=== PATIENT | male | born 1930 | race Caucasian/White ===

== ENCOUNTER 2017-09-22 21:46 | Inpatient (IN) | payer MEDICARE, OTHER ==
[~2017-09-22] VITALS: Ht 177.8 cm; Wt 71.0 kg
[~2017-09-22 21:46] MED LIST: ASPIRIN 32325 MG/TAB PO
[2017-09-22 22:38] LABS: BASO # 0.1 (0.0-0.2); BASO % 0.9 % (0.0-2.0); EOS # 0.1 (0.0-0.7); EOS % 1.6 % (0-4.0); GRAN # 5.4 (1.4-6.5); GRAN % 71.7 % (42.2-75.2); HEMATOCRIT 39.6 % (42.0-52.0); LYMPH # 0.9 (1.2-3.4); LYMPH % 12.2 % (20.0-51.0); MEAN CELL VOLUME 99 fl (80.0-100.0); MEAN CORPUSCULAR HEMOGLOBIN 32 pg (27.0-31.0); MEAN CORPUSCULAR HGB CONC 33 g/dl (33.0-37.0); MONO % 13.2 % (1.7-9.3); PLATELET COUNT 199 K/mm3 (130-400); RED BLOOD COUNT 4.02 M/mm3 (4.20-5.60); REDCELL DISTRIBUTION WIDTH-CV 13.4 % (11.5-14.5)
[2017-09-22 22:50] LABS: ALANINE AMINOTRANSFERASE 32 U/L (21-72); ALBUMIN 3.4 gm/dL (3.5-5.0); ALKALINE PHOSPHATASE 98 U/L (50-136); ANION GAP 11 mmol/L (7-16); AST,SGOT 37 U/L (15-37); BILIRUBIN,TOTAL 0.9 mg/dL (0.0-1.0); BLOOD UREA NITROGEN 39 mg/dL (9-20); CALCIUM 8.5 mg/dL (8.4-10.2); CARBON DIOXIDE 24 mmol/L (22-30); CHLORIDE 104 mmol/L (98-107); CREATININE, serum 1.97 mg/dL (0.66-1.25); GLUCOSE 102 mg/dL (74-106); POTASSIUM 4.1 mmol/L (3.4-5.0); SODIUM 139 mmol/L (137-145); TOTAL PROTEIN 6.3 gm/dL (6.4-8.2)
[2017-09-22 22:58] LABS: ALCOHOL(ethanol),MEDICAL < 10 mg/dL
[2017-09-22 23:19] LABS: TSH w REFLEX 0.961 uIU/mL (0.465-4.680)
[2017-09-23] VITALS (253 sets, daily range): BP systolic 108–155; BP diastolic 59–89; PULSE 63–145; TEMP 97.4–98.2; O2SAT 79–100
[2017-09-23 01:55] LABS: COLLECTION METHOD CLEAN CATCH
[2017-09-23 02:02] LABS: MUCOUS Present /lpf; PH 5 (5-8); SQUAMOUS EPITHELIAL None Seen /hpf; URINE APPEARANCE Clear; URINE BACTERIA None Seen /hpf; URINE BILIRUBIN Negative (NEGATIVE); URINE BLOOD 1+ (NEGATIVE); URINE COLOR Yellow; URINE GLUCOSE Negative (NEGATIVE); URINE KETONE Negative (NEGATIVE); URINE LEUKOCYTE ESTERASE Negative (NEGATIVE); URINE NITRATE Negative (NEGATIVE); URINE PROTEIN(semi-quant) Negative (NEGATIVE)
[2017-09-23 02:11] LABS: TRICYCLIC ANTIDEPRESS URINE NEGATIVE
[2017-09-23 06:55] LABS: BASO # 0.1 (0.0-0.2); BASO % 1.1 % (0.0-2.0); EOS # 0.1 (0.0-0.7); GRAN # 3.8 (1.4-6.5); GRAN % 67.1 % (42.2-75.2); HEMATOCRIT 38.3 % (42.0-52.0); HEMOGLOBIN 12.7 g/dl (13.5-18.0); LYMPH % 17.2 % (20.0-51.0); MEAN CELL VOLUME 98 fl (80.0-100.0); MEAN CORPUSCULAR HEMOGLOBIN 33 pg (27.0-31.0); MEAN CORPUSCULAR HGB CONC 33 g/dl (33.0-37.0); MEAN PLATELET VOLUME 9.4 fl (7.4-10.4); MONO # 0.7 (0.1-0.6); MONO % 12.2 % (1.7-9.3); PLATELET COUNT 208 K/mm3 (130-400); RED BLOOD COUNT 3.91 M/mm3 (4.20-5.60); REDCELL DISTRIBUTION WIDTH-CV 13.4 % (11.5-14.5)
[2017-09-23 07:11] LABS: CALCIUM 8.1 mg/dL (8.4-10.2); CREATININE, serum 1.67 mg/dL (0.66-1.25); POTASSIUM 3.7 mmol/L (3.4-5.0)
[2017-09-24] VITALS (654 sets, daily range): BP systolic 95–182; BP diastolic 50–104; PULSE 61–98; TEMP 96.9–98.5; O2SAT 66–100
[2017-09-24 04:40] LABS: CALCIUM 8.3 mg/dL (8.4-10.2); CREATININE, serum 1.48 mg/dL (0.66-1.25); POTASSIUM 4.1 mmol/L (3.4-5.0)
[2017-09-24 04:49] LABS: CREATININE, serum 1.48 mg/dL (0.66-1.25)
[2017-09-24 05:01] LABS: FRACTIONAL EXCRETION OF NA+ 0.9 %
[2017-09-24 17:40] LABS: HEMOGLOBIN 12.2 g/dl (13.5-18.0); MEAN CELL VOLUME 97 fl (80.0-100.0); MEAN CORPUSCULAR HEMOGLOBIN 32 pg (27.0-31.0); MEAN CORPUSCULAR HGB CONC 33 g/dl (33.0-37.0); PLATELET COUNT 213 K/mm3 (130-400); RED BLOOD COUNT 3.82 M/mm3 (4.20-5.60); REDCELL DISTRIBUTION WIDTH-CV 13.6 % (11.5-14.5)
[2017-09-24 17:41] LABS: INR 1.4 (0.8-3.0); PROTHROMBIN TIME 15.7 SECONDS (9.7-12.8)
[2017-09-24 17:51] LABS: ALBUMIN 2.8 gm/dL (3.5-5.0); BILIRUBIN,TOTAL 0.8 mg/dL (0.0-1.0); CALCIUM 8.3 mg/dL (8.4-10.2); CREATININE, serum 1.44 mg/dL (0.66-1.25); POTASSIUM 4.1 mmol/L (3.4-5.0); TOTAL PROTEIN 5.5 gm/dL (6.4-8.2)
[2017-09-24 19:11] LABS: BAND 10 % (0-10); LYMPHOCYTE 16 % (20.0-51.0); NEUTROPHILS 68 % (42.0-75.2); PLATELET ESTIMATE NORMAL (NORMAL)
[2017-09-24 19:12] LABS: TEAR DROP CELLS 1+
[2017-09-25] VITALS (450 sets, daily range): BP systolic 138–161; BP diastolic 75–90; PULSE 69–105; TEMP 98–99.5; O2SAT 87–100
[2017-09-25 06:45] LABS: BASO # 0.1 (0.0-0.2); BASO % 0.8 % (0.0-2.0); EOS # 0.1 (0.0-0.7); EOS % 1.5 % (0-4.0); GRAN # 5.1 (1.4-6.5); GRAN % 76.7 % (42.2-75.2); HEMATOCRIT 37.9 % (42.0-52.0); HEMOGLOBIN 12.6 g/dl (13.5-18.0); LYMPH # 0.8 (1.2-3.4); LYMPH % 11.3 % (20.0-51.0); MEAN CELL VOLUME 98 fl (80.0-100.0); MEAN CORPUSCULAR HEMOGLOBIN 33 pg (27.0-31.0); MEAN CORPUSCULAR HGB CONC 33 g/dl (33.0-37.0); MONO # 0.6 (0.1-0.6); MONO % 9.4 % (1.7-9.3); PLATELET COUNT 223 K/mm3 (130-400); RED BLOOD COUNT 3.87 M/mm3 (4.20-5.60); REDCELL DISTRIBUTION WIDTH-CV 13.7 % (11.5-14.5)
[2017-09-25 07:01] LABS: ALBUMIN 2.8 gm/dL (3.5-5.0); BILIRUBIN,TOTAL 0.8 mg/dL (0.0-1.0); CALCIUM 8.1 mg/dL (8.4-10.2); CREATININE, serum 1.46 mg/dL (0.66-1.25); POTASSIUM 3.9 mmol/L (3.4-5.0); TOTAL PROTEIN 5.6 gm/dL (6.4-8.2)
[2017-09-26] VITALS (837 sets, daily range): BP systolic 121–157; BP diastolic 68–86; PULSE 63–70; TEMP 98.2–100.4; O2SAT 80–100
[2017-09-27] VITALS (678 sets, daily range): BP systolic 126–150; BP diastolic 62–97; PULSE 60–65; TEMP 97–99.8; O2SAT 84–100
[2017-09-27 06:09] LABS: CALCIUM 7.8 mg/dL (8.4-10.2); CREATININE, serum 1.31 mg/dL (0.66-1.25); POTASSIUM 3.7 mmol/L (3.4-5.0)
[2017-09-28] VITALS (783 sets, daily range): BP systolic 117–164; BP diastolic 72–98; PULSE 55–64; TEMP 97–98.7; O2SAT 63–100
[2017-09-28 05:32] LABS: BASO % 0.5 % (0.0-2.0); EOS # 0.1 (0.0-0.7); EOS % 1.2 % (0-4.0); GRAN # 5.7 (1.4-6.5); GRAN % 74.5 % (42.2-75.2); HEMATOCRIT 38.1 % (42.0-52.0); HEMOGLOBIN 12.4 g/dl (13.5-18.0); LYMPH # 0.9 (1.2-3.4); LYMPH % 12.1 % (20.0-51.0); MEAN CELL VOLUME 99 fl (80.0-100.0); MEAN CORPUSCULAR HEMOGLOBIN 32 pg (27.0-31.0); MEAN CORPUSCULAR HGB CONC 33 g/dl (33.0-37.0); MEAN PLATELET VOLUME 9.3 fl (7.4-10.4); MONO # 0.9 (0.1-0.6); MONO % 11.3 % (1.7-9.3); PLATELET COUNT 219 K/mm3 (130-400); RED BLOOD COUNT 3.86 M/mm3 (4.20-5.60); REDCELL DISTRIBUTION WIDTH-CV 14.3 % (11.5-14.5)
[2017-09-28 05:48] LABS: CALCIUM 8.4 mg/dL (8.4-10.2); CREATININE, serum 1.48 mg/dL (0.66-1.25)
[2017-09-28 16:08] LABS: CALCIUM 8.2 mg/dL (8.4-10.2); CREATININE, serum 1.46 mg/dL (0.66-1.25); POTASSIUM 3.8 mmol/L (3.4-5.0)
[2017-09-29] VITALS (434 sets, daily range): BP systolic 121–152; BP diastolic 57–84; PULSE 52–63; TEMP 97–97.8; O2SAT 80–100
[2017-09-29 06:02] LABS: CALCIUM 8.4 mg/dL (8.4-10.2); CREATININE, serum 1.46 mg/dL (0.66-1.25)
[2017-09-30] VITALS (182 sets, daily range): BP systolic 97–154; BP diastolic 52–83; PULSE 48–78; TEMP 97.2–98.8; O2SAT 73–100
[2017-09-30 05:58] LABS: HEMOGLOBIN 12.3 g/dl (13.5-18.0); MEAN CELL VOLUME 99 fl (80.0-100.0); MEAN CORPUSCULAR HEMOGLOBIN 32 pg (27.0-31.0); MEAN CORPUSCULAR HGB CONC 32 g/dl (33.0-37.0); MEAN PLATELET VOLUME 9.9 fl (7.4-10.4); PLATELET COUNT 214 K/mm3 (130-400); RED BLOOD COUNT 3.83 M/mm3 (4.20-5.60); REDCELL DISTRIBUTION WIDTH-CV 14.3 % (11.5-14.5)
[2017-09-30 06:07] LABS: CREATININE, serum 1.29 mg/dL (0.66-1.25); POTASSIUM 3.4 mmol/L (3.4-5.0)
[2017-10-01 03:52] VITALS: BP 123/61; PULSE 53; TEMP 97.2
[2017-10-01 05:47] LABS: HEMATOCRIT 37.9 % (42.0-52.0); HEMOGLOBIN 12.6 g/dl (13.5-18.0); MEAN CELL VOLUME 97 fl (80.0-100.0); MEAN CORPUSCULAR HEMOGLOBIN 32 pg (27.0-31.0); MEAN CORPUSCULAR HGB CONC 33 g/dl (33.0-37.0); MEAN PLATELET VOLUME 9.7 fl (7.4-10.4); PLATELET COUNT 240 K/mm3 (130-400); RED BLOOD COUNT 3.91 M/mm3 (4.20-5.60); REDCELL DISTRIBUTION WIDTH-CV 13.9 % (11.5-14.5)
[2017-10-01 05:56] LABS: CALCIUM 7.7 mg/dL (8.4-10.2); CREATININE, serum 1.2 mg/dL (0.66-1.25); POTASSIUM 3.3 mmol/L (3.4-5.0)
[2017-10-01 08:00] VITALS: BP 129/70; PULSE 45; TEMP 97
[2017-10-01 12:00] VITALS: BP 144/82; PULSE 63; TEMP 97.5
[2017-10-01] MEDS ORDERED: OMNICEF 300MG300 MG PO ×2 (13:27)
[2017-10-01] MEDS ORDERED: ELIQUIS 5MG PO (13:27)
[2017-10-01] MEDS ORDERED: PACERONE100 MG PO (13:29)
[2017-10-01 17:17] VITALS: BP 153/84; PULSE 68; TEMP 97.6
[2017-10-01 20:00] VITALS: BP 140/69; PULSE 62; TEMP 98
[2017-10-01 23:54] VITALS: BP 126/78; PULSE 61; TEMP 97.7
[2017-10-02] VITALS (253 sets, daily range): BP systolic 114–138; BP diastolic 54–71; PULSE 56–73; TEMP 97–98.2; O2SAT 67–100
[2017-10-02 08:35] LABS: CALCIUM 7.6 mg/dL (8.4-10.2); CREATININE, serum 1.32 mg/dL (0.66-1.25); POTASSIUM 3.8 mmol/L (3.4-5.0)
[2017-10-03] VITALS (197 sets, daily range): BP systolic 129–145; BP diastolic 60–78; PULSE 59–80; TEMP 97.8–98.2; O2SAT 34–100
[2017-10-03 05:44] LABS: CALCIUM 7.9 mg/dL (8.4-10.2); CREATININE, serum 1.39 mg/dL (0.66-1.25)
[2017-10-04] VITALS: BP 141/68; PULSE 76; TEMP 97.7
[2017-10-04 04:00] VITALS: BP 156/84; PULSE 69; TEMP 97.2
[2017-10-04 08:00] VITALS: BP 129/65; PULSE 72; TEMP 97.6
[2017-10-04 12:00] VITALS: BP 138/77; PULSE 80; TEMP 97.5
[2017-10-04 16:00] VITALS: BP 148/68; PULSE 69; TEMP 98.8
[2017-10-04 20:00] VITALS: BP 147/76; PULSE 83; TEMP 97.8
[2017-10-05] VITALS: BP 135/67; PULSE 72; TEMP 97.7
[2017-10-05 04:00] VITALS: BP 131/66; PULSE 70; TEMP 97.7
[2017-10-05 08:25] VITALS: BP 140/66; PULSE 66; TEMP 97.8
[2017-10-05 12:02] VITALS: BP 124/59; PULSE 66; TEMP 98.1
[2017-10-05 16:01] VITALS: BP 140/75; PULSE 76; TEMP 98.2
[2017-10-05 20:25] VITALS: BP 166/76; PULSE 89; TEMP 98.6
[2017-10-06] VITALS (7 sets, daily range): BP systolic 97–174; BP diastolic 43–85; PULSE 55–82; TEMP 97–98.7
[2017-10-06 07:03] LABS: BASO # 0.1 (0.0-0.2); BASO % 0.5 % (0.0-2.0); EOS # 0.1 (0.0-0.7); EOS % 1.3 % (0-4.0); GRAN # 7.1 (1.4-6.5); GRAN % 73.2 % (42.2-75.2); HEMOGLOBIN 13.5 g/dl (13.5-18.0); LYMPH # 1.3 (1.2-3.4); LYMPH % 12.8 % (20.0-51.0); MEAN CELL VOLUME 98 fl (80.0-100.0); MEAN CORPUSCULAR HEMOGLOBIN 32 pg (27.0-31.0); MEAN CORPUSCULAR HGB CONC 33 g/dl (33.0-37.0); MEAN PLATELET VOLUME 9.7 fl (7.4-10.4); MONO # 1.1 (0.1-0.6); MONO % 11.7 % (1.7-9.3); PLATELET COUNT 342 K/mm3 (130-400); RED BLOOD COUNT 4.18 M/mm3 (4.20-5.60)
[2017-10-06 07:22] LABS: BILIRUBIN,TOTAL 0.6 mg/dL (0.0-1.0); CALCIUM 8.8 mg/dL (8.4-10.2); CREATININE, serum 1.36 mg/dL (0.66-1.25); POTASSIUM 4.4 mmol/L (3.4-5.0); TOTAL PROTEIN 6.4 gm/dL (6.4-8.2)
[2017-10-06 16:22] LABS: FOLATE (FOLIC ACID) 4.7 ng/mL (7.0-31.4)
[2017-10-07 03:59] VITALS: BP 157/64; PULSE 66; TEMP 97.6
[2017-10-07 06:49] LABS: BASO % 0.5 % (0.0-2.0); EOS # 0.1 (0.0-0.7); EOS % 1.1 % (0-4.0); GRAN % 68.4 % (42.2-75.2); HEMATOCRIT 39.1 % (42.0-52.0); HEMOGLOBIN 12.6 g/dl (13.5-18.0); LYMPH # 1.1 (1.2-3.4); LYMPH % 15.2 % (20.0-51.0); MEAN CELL VOLUME 100 fl (80.0-100.0); MEAN CORPUSCULAR HEMOGLOBIN 32 pg (27.0-31.0); MEAN CORPUSCULAR HGB CONC 32 g/dl (33.0-37.0); MEAN PLATELET VOLUME 9.4 fl (7.4-10.4); MONO # 1.1 (0.1-0.6); MONO % 14.3 % (1.7-9.3); PLATELET COUNT 334 K/mm3 (130-400); RED BLOOD COUNT 3.93 M/mm3 (4.20-5.60); REDCELL DISTRIBUTION WIDTH-CV 14.2 % (11.5-14.5)
[2017-10-07 07:17] LABS: CALCIUM 8.3 mg/dL (8.4-10.2); CREATININE, serum 1.47 mg/dL (0.66-1.25); MAGNESIUM 2.1 mg/dL (1.6-2.3); PHOSPHOROUS 3.5 mg/dL (2.5-4.5); POTASSIUM 3.9 mmol/L (3.4-5.0)
[2017-10-07 08:35] VITALS: BP 126/73; PULSE 73; TEMP 97.9
[2017-10-07 11:58] VITALS: BP 113/61; PULSE 66; TEMP 98.7
[2017-10-07 16:10] VITALS: BP 127/66; PULSE 65; TEMP 97.1
[2017-10-07 21:33] VITALS: BP 160/96; PULSE 90; TEMP 98.5
[2017-10-07 23:40] VITALS: BP 141/61; PULSE 84; TEMP 98.6
[2017-10-08 02:40] VITALS: BP 103/48; PULSE 79; TEMP 98.6
[2017-10-08 07:40] LABS: BASO % 0.6 % (0.0-2.0); EOS # 0.1 (0.0-0.7); GRAN # 4.6 (1.4-6.5); GRAN % 65.9 % (42.2-75.2); HEMATOCRIT 38.1 % (42.0-52.0); HEMOGLOBIN 12.1 g/dl (13.5-18.0); LYMPH # 1.2 (1.2-3.4); LYMPH % 16.6 % (20.0-51.0); MEAN CELL VOLUME 101 fl (80.0-100.0); MEAN CORPUSCULAR HEMOGLOBIN 32 pg (27.0-31.0); MEAN CORPUSCULAR HGB CONC 32 g/dl (33.0-37.0); MEAN PLATELET VOLUME 9.5 fl (7.4-10.4); MONO # 1.1 (0.1-0.6); MONO % 15.3 % (1.7-9.3); PLATELET COUNT 326 K/mm3 (130-400); RED BLOOD COUNT 3.79 M/mm3 (4.20-5.60); REDCELL DISTRIBUTION WIDTH-CV 14.4 % (11.5-14.5)
[2017-10-08 07:41] VITALS: BP 119/64; PULSE 74; TEMP 98.1
[2017-10-08 07:59] LABS: CALCIUM 8.5 mg/dL (8.4-10.2); CREATININE, serum 1.51 mg/dL (0.66-1.25); MAGNESIUM 2.2 mg/dL (1.6-2.3); PHOSPHOROUS 3.7 mg/dL (2.5-4.5); POTASSIUM 4.1 mmol/L (3.4-5.0)
[2017-10-08 11:21] VITALS: BP 121/58; PULSE 86; TEMP 98.4
[2017-10-08 15:44] VITALS: BP 141/59; PULSE 87; TEMP 97.7
[2017-10-08 20:51] VITALS: BP 133/67; PULSE 116; TEMP 98
[2017-10-08 23:40] VITALS: BP 110/54; PULSE 85; TEMP 98
[2017-10-09 04:03] VITALS: BP 129/49; PULSE 82; TEMP 98.4
[2017-10-09 06:28] LABS: BASO # 0.1 (0.0-0.2); BASO % 0.7 % (0.0-2.0); EOS # 0.1 (0.0-0.7); EOS % 0.9 % (0-4.0); GRAN # 5.7 (1.4-6.5); GRAN % 69.9 % (42.2-75.2); HEMATOCRIT 35.8 % (42.0-52.0); HEMOGLOBIN 11.5 g/dl (13.5-18.0); LYMPH # 1.2 (1.2-3.4); LYMPH % 14.5 % (20.0-51.0); MEAN CELL VOLUME 100 fl (80.0-100.0); MEAN CORPUSCULAR HEMOGLOBIN 32 pg (27.0-31.0); MEAN CORPUSCULAR HGB CONC 32 g/dl (33.0-37.0); MEAN PLATELET VOLUME 9.4 fl (7.4-10.4); MONO # 1.1 (0.1-0.6); MONO % 13.5 % (1.7-9.3); PLATELET COUNT 326 K/mm3 (130-400); RED BLOOD COUNT 3.58 M/mm3 (4.20-5.60); REDCELL DISTRIBUTION WIDTH-CV 14.6 % (11.5-14.5)
[2017-10-09 06:40] LABS: CALCIUM 8.2 mg/dL (8.4-10.2); CREATININE, serum 1.67 mg/dL (0.66-1.25); POTASSIUM 4.1 mmol/L (3.4-5.0)
[2017-10-09 08:01] VITALS: BP 132/68; PULSE 80; TEMP 98.7
[2017-10-09 11:52] VITALS: BP 115/85; PULSE 94; TEMP 98
[2017-10-09 16:44] VITALS: BP 147/77; PULSE 97; TEMP 98.2
[2017-10-09 19:46] VITALS: BP 128/82; PULSE 84; TEMP 98.6
[2017-10-10] VITALS (7 sets, daily range): BP systolic 123–150; BP diastolic 56–74; PULSE 54–94; TEMP 97.4–99
[2017-10-10 06:51] LABS: CALCIUM 8.6 mg/dL (8.4-10.2); CREATININE, serum 1.58 mg/dL (0.66-1.25); POTASSIUM 4.1 mmol/L (3.4-5.0)
[2017-10-11 03:37] VITALS: BP 155/62; PULSE 80; TEMP 97.7
[2017-10-11 07:38] VITALS: BP 129/77; PULSE 72; TEMP 97.8
[2017-10-11 11:44] VITALS: BP 120/65; PULSE 60; TEMP 97.7
[2017-10-11 16:22] VITALS: BP 158/89; PULSE 80; TEMP 98
[2017-10-11 19:56] VITALS: BP 131/65; PULSE 86; TEMP 97.7
[2017-10-12 00:28] VITALS: BP 164/70; PULSE 79; TEMP 97
[2017-10-12 03:49] VITALS: BP 105/50; PULSE 72; TEMP 97.4
[2017-10-12 07:54] VITALS: BP 129/72; PULSE 76; TEMP 97.7
[2017-10-12 11:12] VITALS: BP 106/49; PULSE 104; TEMP 98.4
[2017-10-12 16:04] VITALS: BP 114/60; PULSE 81; TEMP 98.7
[2017-10-12] MEDS ORDERED: DEPAKOTE 125MG125 M1 PO (16:04)
[2017-10-12] MEDS ORDERED: B-121000 MCG PO (16:04)
[2017-10-12] MEDS ORDERED: SEROQUEL50 MG PO ×2 (16:04)
[2017-10-12] MEDS ORDERED: FOLIC ACID 11 MG/TA1 PO (16:05)
[2017-10-12] MEDS ORDERED: NAMENDA 10MG TA10 MG PO (16:05)
[2017-10-12 19:41] VITALS: BP 105/71; PULSE 73; TEMP 98
[2017-10-13] VITALS (7 sets, daily range): BP systolic 119–146; BP diastolic 56–68; PULSE 56–81; TEMP 97.6–98.7
[2017-10-14] VITALS (7 sets, daily range): BP systolic 107–145; BP diastolic 58–91; PULSE 72–90; TEMP 97.4–98.3
[2017-10-15 03:57] VITALS: BP 151/69; PULSE 74; TEMP 97
[2017-10-15 06:16] LABS: BASO # 0.1 (0.0-0.2); EOS # 0.1 (0.0-0.7); EOS % 1.5 % (0-4.0); GRAN # 3.9 (1.4-6.5); GRAN % 67.5 % (42.2-75.2); HEMATOCRIT 37.2 % (42.0-52.0); LYMPH % 16.8 % (20.0-51.0); MEAN CELL VOLUME 101 fl (80.0-100.0); MEAN CORPUSCULAR HEMOGLOBIN 32 pg (27.0-31.0); MEAN CORPUSCULAR HGB CONC 32 g/dl (33.0-37.0); MEAN PLATELET VOLUME 9.4 fl (7.4-10.4); MONO # 0.7 (0.1-0.6); MONO % 12.7 % (1.7-9.3); PLATELET COUNT 305 K/mm3 (130-400); RED BLOOD COUNT 3.68 M/mm3 (4.20-5.60); REDCELL DISTRIBUTION WIDTH-CV 14.2 % (11.5-14.5)
[2017-10-15 06:22] LABS: HEMOGLOBIN 11.7 g/dl (13.5-18.0)
[2017-10-15 06:23] LABS: CALCIUM 8.7 mg/dL (8.4-10.2); CREATININE, serum 1.71 mg/dL (0.66-1.25); POTASSIUM 4.5 mmol/L (3.4-5.0)
[2017-10-15 08:46] VITALS: BP 151/69; PULSE 74; TEMP 97
== END 2017-10-15 08:10 | DRG 175 ==
LOC: COL.ER 21:46 → ICU 09-23 00:02 → SURG 09-23 00:02 → MEDICAL 09-23 00:02 → ICU 09-23 15:21 → MEDICAL 09-28 17:32 → ICU 09-28 17:32 → MEDICAL 10-05 13:35
PROVIDERS: Emergency Medicine; Internal Medicine; Nurse Practitioner Family; Physician Assistant
DX: I26.99 Other pulmonary embolism without acute cor pulmonale (principal); J18.9 Pneumonia, unspecified organism; I82.412 Acute embolism and thrombosis of left femoral vein; N17.9 Acute kidney failure, unspecified; F02.81 Dementia in other diseases classified elsewhere, unspecified severity, with behavioral disturbance; F05 Delirium due to known physiological condition; E87.0 Hyperosmolality and hypernatremia; J90 Pleural effusion, not elsewhere classified; E86.0 Dehydration; G30.9 Alzheimer's disease, unspecified; I48.91 Unspecified atrial fibrillation; Z66 Do not resuscitate; E87.6 Hypokalemia; D64.9 Anemia, unspecified; N18.9 Chronic kidney disease, unspecified
CPT/HCPCS: 99223-AI; 99231-AI; 99232-AI; 99233-AI; 99239; J0282; J0696; J1630; J1650; J2060; J7030; J7042; J7050; J7060; J7070; Q9967